=== PATIENT | female | born 1965 | race African-American/Black ===

== ENCOUNTER 2017-08-30 16:44 | Emergency (ER) | payer SELFPAY ==
[~2017-08-30] VITALS: Ht 160 cm; Wt 72.0 kg
[2017-08-30] MEDS ORDERED: IBUPROFEN 600MG TABLET PO ONE (17:00)
[2017-08-30 18:15] VITALS: BP 108/62
== END 2017-08-30 18:47 | disposition home or self-care (01) ==
LOC: ER 16:44
DX: M79.642 Pain in left hand (principal); M79.641 Pain in right hand; R20.2 Paresthesia of skin; M54.5 Low back pain; G89.29 Other chronic pain; R20.0 Anesthesia of skin; F17.200 Nicotine dependence, unspecified, uncomplicated
CPT/HCPCS: 82962; 99282

== ENCOUNTER → 2018-01-08 | Day surgery (SDC) | payer OTHER | END | disposition home or self-care (01) | LOC: RADANGIO 08:32 | PROVIDERS: ATTEND Internal Medicine Rheumatology | DX: M06.9 Rheumatoid arthritis, unspecified (principal); M31.8 Other specified necrotizing vasculopathies; F17.200 Nicotine dependence, unspecified, uncomplicated; G89.29 Other chronic pain; Z79.899 Other long term (current) drug therapy | CPT/HCPCS: 36569; 76937; 77001; C1725; C1769 ==